=== PATIENT | female | born 2000 | race Caucasian/White ===

== ENCOUNTER 2022-08-14 13:59 | Emergency (ER) | payer OTHER, SELFPAY ==
--- NOTE | ~2022-08-14 | XR_ITS ---
EXAMINATION: XR chest 2V Exam Date/Time: 08/14/2022 17:20 CDT HISTORY: cough Comparison: Cough. RESULT: Lines, tubes, and devices: None. Lungs and pleura: Clear. Cardiomediastinal silhouette: Normal. Other: No acute osseous or upper abdominal finding. IMPRESSION: No acute cardiopulmonary process. Reviewed, dictated and finalized at [facility].
[2022-08-14 14:12] VITALS: BP 109/81; PULSE 113; RESP 18; TEMP 36.8; O2SAT 100
[2022-08-14 14:27] LABS: Hematocrit 41.1 % (37.0-47.0); Hemoglobin 13.4 g/dL (12.0-15.0); Mean Corpuscular HGB Conc 32.6 g/dl (32-36); Mean Corpuscular Volume 85.8 fl (80-100); Mean Platelet Volume 9.7 fl (7.4-10.4); Platelet Count Result 146 k/mm3 (150-375); Red Blood Count 4.79 M/mm3 (4.2-5.4); Red Cell Distribution Width 13.6 % (11.5-14.5); White Blood Count 5.1 K/mm3 (4.5-10.0)
[2022-08-14 14:37] LABS: Alanine Aminotransferase 194 U/L (6-35); Albumin Level 4.3 g/dL (3.5-5.1); Alkaline Phosphatase 176 U/L (38-126); Anion Gap 8 mmol/L (8-16); Aspartate Amino Transferase 188 U/L (14-36); Bilirubin,Total 0.6 mg/dL (0.2-1.3); Blood Urea Nitrogen 10 mg/dL (7-17); Calcium 8.9 mg/dL (8.4-10.2); Carbon Dioxide 25 mmol/L (22-30); Chloride 104 mmol/L (98-107); Estimated Glomerular Filt Rate > 60; Glucose 115 mg/dL (65-110); Lipase 51 U/L (23-300); Potassium 3.9 mmol/L (3.4-5.0); Sodium 137 mmol/L (137-145)
[2022-08-14 15:08] LABS: Atypical Lymphocytes Present; Band Neutrophils Percent 3 % (0-6); Monocytes Absolute Manual 0.45 K/mm3 (0.1-0.90); Monocytes Percent Manual 9 % (3-9); Neutrophils Absolute Manual 1.63 K/mm3 (1.7-7.2); Neutrophils Percent Manual 29 % (46-73); Schistocytes None Seen (NORMAL); Total Cells Counted 100
[2022-08-14 15:09] LABS: Appearance Urine Cloudy (Clear); Bacteria Urine Rare /hpf; Bilirubin Urine Negative (Negative); Blood Urine Negative (Negative); Color Urine Dark Yellow (Yellow); Glucose Urine UA Negative (Negative); Ketones Urine Trace mg/dL (Negative); Leukocyte Esterase Ur Trace LEU/UL (Negative); Nitrate Urine Negative (Negative); Non Pathogenic Casts 0-2; Protein Urine 1+ mg/dL (Negative); Specific Grav Ur 1.021 (1.001-1.035); Squamous Epithelial Cell Urine Few /hpf (Few); WBC Urine 0-5 /hpf; pH Urine 5.5 (5.0-9.0)
[2022-08-14 15:16] LABS: Add Urine Microscopic? YES
[2022-08-14 15:40] LABS: Influenza A QL RT-PCR Negative (Negative); Influenza B QL RT-PCR Negative (Negative); SARS-CoV-2 RNA PCR Negative (Negative)
--- NOTE | 2022-08-14 17:09 | ED.GENADULT ---
HPI - General Adult General Chief complaint: Headache Stated complaint: Fever, Headaches x1 week Time Seen by Provider: 08/14/22 16:23 History of Present Illness HPI narrative: 22 year-old female presented the ED for evaluation of intermittent headache, sore throat and intermittent cough with subjective fever. Patient states the headache started approximately 1 week ago. Patient states the cough started on Tuesday and patient has a sore throat for the last few days. Patient denies any associated nausea vomiting diarrhea. Patient denies any pain with urination. Related Data Allergies Allergy/AdvReac Type Severity Reaction Status Date / Time No Known Allergies Allergy Verified 08/14/22 19:31 Review of Systems Review of Systems: All systems reviewed & are unremarkable except as noted in HPI and below Exam Narrative: APPEARANCE: Well appearing, no pain, no distress, well-nourished. HEAD: normocephalic, atraumatic. EYES: PERRLA/EOMI, conjunctivae clear. NOSE: Normal no drainage EARS:TMS clear with good light reflex. THROAT: Mild posterior pharyngeal erythema NECK: Supple. No adenopathy, no masses. RESPIRATORY: Airway patent, respirations nonlabored. Clear to auscultation bilaterally, no rales, rhonchi, wheezing. CARDIOVASCULAR: Regular rate and rhythm without murmurs rubs or gallops. ABDOMINAL: Soft, nontender, nondistended, normal bowel sounds MUSCULOSKELETAL: Moves all extremities. Strength/ROM intact, No edema, No calf tenderness. NEURO: Alert. Cranial nerves II through XII intact. Grossly intact SKIN: Warm, dry. Normal Color Course Course Emergency Course: Chest x-ray showed no acute cardiopulmonary normality. Patient was positive for strep. Patient was treated with antibiotics emergency room and discharged home with antibiotics. Patient was afebrile with no leukocytosis. Patient's CMP is within the limits but patient does have elevated AST ALT and alk phos. Patient's UA showed no evidence of urinary tract infection. Patient was updated the results of the work-up and plan for treatment. Patient was encouraged of close follow-up with her primary care physician. Vital Signs Vital signs: Vital Signs Temperature 98.2 F 08/14/22 14:12 Pulse Rate 113 H 08/14/22 14:12 Respiratory Rate 18 08/14/22 14:12 Blood Pressure 109/81 08/14/22 14:12 Pulse Oximetry 100 08/14/22 14:12 Oxygen Delivery Room Air 08/14/22 14:12 Temperature 98.2 F 08/14/22 14:12 Pulse Rate 78 08/14/22 19:45 Respiratory Rate 18 08/14/22 19:45 Blood Pressure 124/62 08/14/22 19:45 Pulse Oximetry 99 08/14/22 19:45 Oxygen Delivery Room Air 08/14/22 14:12 Medical Decision Making Vital Signs Vital Signs: Vital Signs Temperature 98.2 F 08/14/22 14:12 Pulse Rate 113 H 08/14/22 14:12 Respiratory Rate 18 08/14/22 14:12 Blood Pressure 109/81 08/14/22 14:12 Pulse Oximetry 100 08/14/22 14:12 Oxygen Delivery Room Air 08/14/22 14:12 Temperature 98.2 F 08/14/22 14:12 Pulse Rate 78 08/14/22 19:45 Respiratory Rate 18 08/14/22 19:45 Blood Pressure 124/62 08/14/22 19:45 Pulse Oximetry 99 08/14/22 19:45 Oxygen Delivery Room Air 08/14/22 14:12 Lab Data Lab results reviewed: Yes I reviewed the patient's lab results. 08/14/22 14:21 08/14/22 14:21 Labs: Lab Results 08/14/22 08/14/22 08/14/22 Range/Units 14:21 14:56 18:33 WBC 5.1 (4.5-10.0) K/mm3 RBC 4.79 (4.2-5.4) M/mm3 Hgb 13.4 (12.0-15.0) g/dL Hct 41.1 (37.0-47.0) % MCV 85.8 (80-100) fl MCH 28.0 (26-34) pg MCHC 32.6 (32-36) g/dl RDW 13.6 (11.5-14.5) % Plt Count 146 L (150-375) k/mm3 MPV 9.7 (7.4-10.4) fl Immature Gran % (Auto) Not Reportable Neut % (Auto) Not Reportable Lymph % (Auto) Not Reportable Cassia % (Auto) Not Reportable Eos % (Auto) Not Reportable Baso % (Auto) Not Reportable Lymph #
[2022-08-14 19:13] LABS: Strep Group A RT-PCR DETECTED (Negative)
[2022-08-14] MEDS: AMOXICILLIN/CLAVULANATE K 875-125 MG TAB 1 TABLET PO (19:32)
[2022-08-14] MEDS: KETOROLAC 30 MG/ML VIAL (*BKC) IM (19:33)
[2022-08-14 19:45] VITALS: BP 124/62; PULSE 78; RESP 18; O2SAT 99
== END 2022-08-14 19:46 | disposition home or self-care (01) ==
PROVIDERS: General Practice; Emergency Provider Emergency Medicine
DX: J02.0 Streptococcal pharyngitis (principal); R51.9 Headache, unspecified; Z20.822 Contact with and (suspected) exposure to COVID-19
CPT/HCPCS: 36415; 71046; 80053; 81001; 81025; 83690; 85025; 87636; 87651; 96372; 99283; A9270; J1885

== ENCOUNTER 2023-05-06 01:54 | Emergency (ER) | payer OTHER, SELFPAY ==
--- NOTE | ~2023-05-06 | CT_ITS ---
CT of the Abdomen and Pelvis: Indication: Abdominal pain Technique: 2.5 mm axial scans were obtained through the abdomen and pelvis following intravenous adm inistration of 100 cc of Omnipaque 350. Dose reduction technique was used on this scan by utilizing a utomated exposure control and iterative reconstruction technique. The dose-length product (DLP) was 2 86.15 mGy-cm. Findings: Scans through the lung bases are unremarkable. The liver, spleen, pancreas, gallbladder, adrenals and kidneys are within normal limits. No evidence of aortic aneurysm. No lymphadenopathy. No bowel obstruction or bowel wall thickening. There is no evidence to suggest acute appendicitis. Images through the pelvis were performed. Questionable mild urinary bladder wall thickening. No adnex al mass seen. No ascites. Impression: Questionable cystitis. Correlate urinalysis for UTI. Reviewed, dictated and finalized at [facility]. ECT MANAGEMENT INSTRUCTOR Impression: Questionable cystitis. Correlate urinalysis for UTI.
[2023-05-06 02:36] VITALS: BP 110/82; PULSE 88; RESP 15; TEMP 37; O2SAT 100
[2023-05-06 05:28] LABS: Basophils Percent Auto 0.3 % (0.2-1.2); Eosinophils Absolute Auto 0.1 K/mm3 (0-0.3); Eosinophils Percent Auto 1.4 % (0-4.4); Hematocrit 39.5 % (37.0-47.0); Hemoglobin 12.8 g/dL (12.0-15.0); Immature Granulocyte Absolute 0.01 K/mm3 (0.00-0.031); Immature Granulocyte Percent A 0.2 % (0-0.5); Lymphocytes Absolute Auto 2.96 K/mm3 (0.9-3.2); Lymphocytes Percent Auto 45.6 % (18.3-44.2); Mean Corpuscular HGB Conc 32.4 g/dl (32-36); Mean Corpuscular Hemoglobin 28.5 pg (26-34); Mean Platelet Volume 9.1 fl (7.4-10.4); Monocytes Absolute Auto 0.6 K/mm3 (0.1-0.6); Monocytes Percent Auto 9.4 % (2.6-8.5); Neutrophils Absolute Auto 2.8 K/mm3 (1.3-6.7); Neutrophils Percent Auto 43.1 % (45.5-73.1); Platelet Count Result 343 k/mm3 (150-375); Red Blood Count 4.49 M/mm3 (4.2-5.4); Red Cell Distribution Width 12.8 % (11.5-14.5); White Blood Count 6.5 K/mm3 (4.5-10.0)
[2023-05-06 05:34] LABS: Appearance Urine Clear (Clear); Bacteria Urine None Seen /hpf; Bilirubin Urine Negative (Negative); Blood Urine Negative (Negative); Color Urine Yellow (Yellow); Glucose Urine UA Negative (Negative); Ketones Urine Trace mg/dL (Negative); Leukocyte Esterase Ur Trace LEU/UL (Negative); Nitrate Urine Negative (Negative); Non Pathogenic Casts 0-2; Protein Urine Negative (Negative); RBC Urine 0-2 /hpf (0-2); Specific Grav Ur 1.027 (1.001-1.035); Squamous Epithelial Cell Urine None seen /hpf (Few); WBC Urine 0-5 /hpf; pH Urine 5.5 (5.0-9.0)
[2023-05-06 05:44] LABS: Alanine Aminotransferase 13 U/L (6-35); Albumin Level 4.5 g/dL (3.5-5.1); Alkaline Phosphatase 71 U/L (38-126); Anion Gap 6 mmol/L (8-16); Aspartate Amino Transferase 19 U/L (14-36); Bilirubin,Total 0.3 mg/dL (0.2-1.3); Blood Urea Nitrogen 14 mg/dL (7-17); Calcium 9.6 mg/dL (8.4-10.2); Carbon Dioxide 28 mmol/L (22-30); Chloride 105 mmol/L (98-107); Estimated CRCL calculation 103 ml/min; Estimated Glomerular Filt Rate > 60; Glucose 99 mg/dL (65-110); Lipase 48 U/L (23-300); Potassium 3.9 mmol/L (3.4-5.0); Sodium 139 mmol/L (137-145)
[2023-05-06 05:47] LABS: Add Urine Microscopic? YES
--- NOTE | 2023-05-06 07:15 | ED.ABDPAIN ---
HPI - Abdominal Pain General Chief Complaint: Abdominal Pain Stated Complaint: abdominal pain Time Seen by Provider: 05/06/23 07:13 Source: patient Mode of arrival: ambulatory Limitations: no limitations History of Present Illness HPI narrative: 22 years old white female came to the emergency room by private car complaining of right lower quadrant pain, dull aching, started few hours prior to arrival to the emergency room, she denies any fever, chills, nausea, vomiting, diarrhea, constipation or urinary symptoms. Patient is telling me she is about to have her menstrual cycle. No history of abdominal surgery, does not take medication, does not smoke or drink or use drugs. Related Data Allergies Allergy/AdvReac Type Severity Reaction Status Date / Time No Known Allergies Allergy Verified 05/06/23 05:19 Review of Systems Review of Systems: All systems reviewed & are unremarkable except as noted in HPI and below Exam Narrative: General appearance: Well-developed, well-nourished Skin: Normal color Head: Normocephalic, nontraumatic Eyes: Clear conjunctiva ENT: Oropharynx normal, ears normal, nose normal Neck: Supple, nontender Chest and respiratory: Airway patent, no respiratory distress, no accessory muscle use Heart: Regular rate/rhythm Abdomen: Soft, slight diffuse tenderness across lower abdomen mainly on the right side, no guarding or rebound Vascular: Normal peripheral pulses, normal capillary refill. Musculoskeletal: Normal range of motion, nontender back Neurologic: Alert and oriented ?3, PATROL SUPERVISOR is normal as tested, no gross motor deficit Course Reevaluation(s) Reevaluation #1: Currently patient is asymptomatic after IV Dilaudid. Date: 05/06/23 Time: 08:22 Vital Signs Vital signs: Vital Signs Temperature 37.0 C 05/06/23 02:36 Pulse Rate 88 05/06/23 02:36 Respiratory Rate 15 05/06/23 02:36 Blood Pressure 110/82 05/06/23 02:36 Pulse Oximetry 100 05/06/23 02:36 Oxygen Delivery Room Air 05/06/23 02:36 Temperature 37.0 C 05/06/23 02:36 Pulse Rate 88 05/06/23 02:36 Respiratory Rate 15 05/06/23 02:36 Blood Pressure 110/82 05/06/23 02:36 Pulse Oximetry 100 05/06/23 02:36 Oxygen Delivery Room Air 05/06/23 02:36 MDM - Abdominal Pain MDM Narrative Medical decision making narrative: Patient presents with right lower abdominal pain, Physical examination showed slight tenderness across low lower abdomen, Differential diagnosis include appendicitis, urinary tract infection, constipation, diverticulitis, about have her minutes with cycle Blood workup showed no acute abnormalities, urinalysis showed trace of leukocyte Estrace, CT abdomen and pelvis with IV contrast showed possible cystitis. My plan to discharge patient with diagnosis of abdominal pain/cystitis on Macrobid. Differential Diagnosis Differential diagnosis: Likely other (As above) Medical Records Attestation: I reviewed the patient's medical records. Lab Data Attestation: I reviewed the patient's lab results. 05/06/23 05:16 05/06/23 05:16 Labs: Lab Results 05/06/23 Range/Units 05:16 WBC 6.5 (4.5-10.0) K/mm3 RBC 4.49 (4.2-5.4) M/mm3 Hgb 12.8 (12.0-15.0) g/dL Hct 39.5 (37.0-47.0) % MCV 88.0 (80-100) fl MCH 28.5 (26-34) pg MCHC 32.4 (32-36) g/dl RDW 12.8 (11.5-14.5) % Plt Count 343 D (150-375) k/mm3 MPV 9.1 (7.4-10.4) fl Immature Gran % (Auto) 0.2 (0-0.5) % Neut % (Auto) 43.1 L (45.5-73.1) % Lymph % (Auto) 45.6 H (18.3-44.2) % [place] % (Auto) 9.4 H (2.6-8.5) % Eos % (Auto) 1.4 (0-4.4) % Baso % (Auto) 0.3 (0.2-1.2) % Lymph # (Auto) 2.96 (0.9
[2023-05-06] MEDS: ONDANSETRON INJ 4 MG/2 ML VIAL IV PUSH (07:36)
[2023-05-06] MEDS: SODIUM CHLORIDE 0.9% IV 1,000 ML 999 ML IV CONT (07:36)
[2023-05-06] MEDS: HYDROmorphone HCL INJ (*CRX) 1 MG/ML SYR 0.5 MG IV PUSH (07:37)
[2023-05-06 09:02] VITALS: BP 110/71; PULSE 68; RESP 16
--- NOTE | 2023-05-10 08:25 | PC.NURSE ---
LATE ENTRY This note is being entered to document information to the patient's record. The following information was omitted on [05/10/23], by [Lilo Nielsen] NS stopped at 0836 on 05/06/23.
== END 2023-05-06 09:03 | disposition home or self-care (01) ==
PROVIDERS: Emergency Medicine; Emergency Provider Emergency Medicine
DX: N39.0 Urinary tract infection, site not specified (principal); R10.31 Right lower quadrant pain
CPT/HCPCS: 36415; 74177; 80053; 81001; 81025; 83690; 85025; 96361; 96374; 96375; 99284; J1170; J2405; J7030; Q9967